=== PATIENT | female | born 1980 | race Caucasian/White ===

== ENCOUNTER 2016-10-07 09:01 | Inpatient (IN) | payer OTHER ==
[~2016-10-07] VITALS: Ht 160 cm; Wt 76.2 kg
[~2016-10-07 09:01] MED LIST: Rolling walker
[2016-10-07] MEDS ORDERED: PRENATAL TABLE1 EAC2 PO (10:28)
--- NOTE | 2016-10-07 10:59 | History & Physical ---
General Information and HPI MD Statement: I have seen and personally examined HUGO TIAN and documented this H&P. The patient is a 36 year old female at [40] weeks and [6] days gestation who presented with a chief complaint of [IOL]. Source of Information: patient Exam Limitations: no limitations History of Present Illness: 36yo, 40 6/7wks, here for IOL due to post dates. c/o tightening of abdomen, denies any pain, no vaginal bleeding or LOF. reports +FM. care started at 8 wks week, uncomplicated thus far, Rh negative, she received RhoGAm at 28 wks. GBS positive h/o SAB x 2. 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 Past Pregnancies Past Pregnancies: Date of Delivery: 01/31/2009 Gestational Age: 41wks Length of Labor: 20hrs Weight: [id number] Type of Delivery: vaginal Anesthesia: epidural Complications: none Medical History Blood Transfusion Hx: No Neurological: NONE EENT: allergies Cardiovascular: NONE Respiratory: asthma Gastrointestinal: NONE, acid reflex Hepatic: NONE Renal: NONE Musculoskeletal: NONE Psychiatric: depression Endocrine: NONE Blood Disorders: NONE Cancer(s): NONE 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 Home Who Do You Live With? spouse, child Primary Language: Hebrew Smoking Status: Former Smoker ETOH Use: denies use Illicit Drug Use: denies illicit drug use Living Will? unknown Review of Systems Review of Systems Constitutional: Reports: no symptoms. EENTM: Reports: no symptoms. Cardiovascular: Reports: no symptoms. Respiratory: Reports: no symptoms. GI: Reports: no symptoms. Genitourinary: Reports: see HPI. Musculoskeletal: Reports: no symptoms. Skin: Reports: no symptoms. Neurological/Psychological: Reports: no symptoms. Hematologic/Endocrine: Reports: no symptoms. Immunologic/Allergic: Reports: no symptoms. All Other Systems: Reviewed and Negative Post Menopausal: No Exam & Diagnostic Data Last 24 Hrs of Vital Signs/I&O Intake & Output 10/07 1600 10/07 0800 10/07 0000 Intake Total Output Total Balance Patient 76.204 kg Weight Obstetric Exam Wgt Gained During : 23lbs Pelvimetry: adequate Dilation (cm): 1 Effacement (%): 50 Station: -3 Membranes: intact Fluid: unknown Fundal Height (cm): 40 Multiple Gestation? No Contractions: q8-9 min #1 - FHR Baseline: 130 Category: 1 Estimated Weight: 7lb Presentation: vertex Patient for Induction? Yes Bell Score Bell Score Response Value Cervix Position: posterior 0 Cervix Consistency: medium 1 Cervix Effacement: 30-50% 1 Cervix Dilation: 1-2 cm 1 Cervix Station: -3 0 Total 3 Physical Exam: VSS general: NAD Abdomen: gravid, soft, nontender Ext: DCT (-) Labs Blood Type & Rh: O negative Antibody Screen: negative Hct/Hgb & Platelets #1: 12.7/38.4%, [id number] Hct/Hgb & Platelets #2: 10.4/32.6%,[id number] Rubella: immune VDRL #1: negative VDRL #2: negative HbsAg: negative HIV #1: negative HIV #2 negative 1 Hr P Group B Strep: positive Initial Ultrasound: IUP at 8 wks 3 days Anatomy Ultrasound: normal Genetic Testing: negative Last 24 Hrs of Labs/Mayur: Laboratory Tests 10/07/16 0933: CBC w Diff Pending, WBC Pending, RBC Pending, Hgb Pending, Hct Pending, MCV Pending, MCH Pending, RDW Pending, Plt Count Pending, MPV Pending, PUBS MCHC Pending Assessment/Plan Assessment/Plan: 36yo, , 40 6/7wks, IOL 1. admit pt, admission labs. 2. method of IOL d/w pt, she understand. in light of ctxs every 8-9 min apart, will defer cytotec for cervical ripening, aide kumaron of cervical ripening d/w pt, R/B /A d/w pt in detail, she understand and agreed. 3. antibiotics for GBS prophylaxis 4. will monitor closely As Ranked By This Provider Problem List: 1. 2. Post-dates Core Measures/Miscellaneous Venous Thromboembolism VTE Risk Factors: / VTE Contraindications: No Contraindications VTE Prophylaxis Ordered Inpt: Early Ambulation VTE Diagnosis: No Beta Kate Is Beta Kate a Home Med? No Antibiotics Is Patient on Antibiotics? No Attending MD Review Statement Attending Statement Attending MD Statement: examined this patient, discussed with family, discussed w/nursing
[2016-10-07 11:43] LABS: ABSOLUTE BASOPHIL COUNT 0.1 /CUMM (0.0-0.2); ABSOLUTE EOSINOPHIL COUNT 0 /CUMM (0.0-0.7); ABSOLUTE GRANULOCYTE CT 7.4 /CUMM (1.4-6.5); ABSOLUTE LYMPH COUNT 1.3 /CUMM (1.2-3.4); ABSOLUTE MONOCYTE COUNT 0.7 /CUMM (0.10-0.60); BASOPHIL % 0.6 % (0.0-2.0); EOSINOPHIL % 0 % (0-5); GRANULOCYTE % 78.1 % (42.2-75.2); HEMATOCRIT 31.7 % (37-47); MEAN CORPUSCULAR HGB 24.7 PG (27.0-31.0); MEAN CORPUSCULAR HGB CONC 32.5 G/DL (33.0-37.0); MEAN PLATELET VOLUME 10.4 FL (7.4-10.4); PLATELET COUNT 246 /CUMM (130-400); RBC DISTRIBUTION WIDTH 15.4 % (11.5-14.5); RED BLOOD CELL CT 4.17 /CUMM (4.20-5.40); WHITE BLOOD CELL COUNT 9.5 /CUMM (4.8-10.8)
--- NOTE | 2016-10-07 11:50 | PN- OBGYN ---
Surgical Brief Attending Note Brief Attending Note: Pt c/o ctxs more stronger than before, she felt painful ctxs now. on TOCO: ctxs q 5-8 min, FHT cat. I. noble ballon placement attempted, but unsucessful , will start pitocin for IOL, plan of care d/w pt, she understand and agreed.
--- NOTE | 2016-10-07 19:45 | PN- OBGYN ---
Surgical Brief Attending Note Brief Attending Note: Late entry for 7 PM pt c/o ctxs pain , some pressure with ctxs on TOCO: ctxs 3-5 in 10 min, FHR cat I. cervix 2cm/70-80%/-3 will give stadol for pain management. monitor closely
--- NOTE | 2016-10-08 03:32 | Labor & Delivery Summary ---
Delivery Summary Vaginal Delivery: Vaginal: vertex Episiotomy/Lacerations: Episiotomy/Lacerations: 2ND DEGREE Type: 2ND DEGREE Repair: 3-0 vicryl Anesthesia: epidural, local Placenta: Placenta: spontanteous, normal, 3 vessel, nuchal cord (x_) (x1) Anesthesia: epidural Cord PH Value: 7.33 Baby's Weight: 7lb4oz Apgars - 1 Min: 7 Apgars - 5 Min: 9
[2016-10-09 04:50] LABS: ABSOLUTE BASOPHIL COUNT 0 /CUMM (0.0-0.2); ABSOLUTE EOSINOPHIL COUNT 0 /CUMM (0.0-0.7); ABSOLUTE GRANULOCYTE CT 11.8 /CUMM (1.4-6.5); ABSOLUTE LYMPH COUNT 1.4 /CUMM (1.2-3.4); ABSOLUTE MONOCYTE COUNT 0.9 /CUMM (0.10-0.60); BASOPHIL % 0.1 % (0.0-2.0); EOSINOPHIL % 0.2 % (0-5); GRANULOCYTE % 83.7 % (42.2-75.2); HEMATOCRIT 26.8 % (37-47); MEAN CORPUSCULAR HGB 24.8 PG (27.0-31.0); MEAN CORPUSCULAR HGB CONC 32.4 G/DL (33.0-37.0); MEAN CORPUSCULAR VOLUME 76.3 FL (81.0-99.0); MEAN PLATELET VOLUME 9.4 FL (7.4-10.4); PLATELET COUNT 210 /CUMM (130-400); RBC DISTRIBUTION WIDTH 15.6 % (11.5-14.5); RED BLOOD CELL CT 3.51 /CUMM (4.20-5.40); WHITE BLOOD CELL COUNT 14.1 /CUMM (4.8-10.8)
[2016-10-09] MEDS ORDERED: IBUPROFEN800 M1 PO (11:15)
[2016-10-09] MEDS ORDERED: ATIVAN0.5 M1 PO (11:15)
[2016-10-09] MEDS ORDERED: FLUOXETINE HCL20 M2 PO (11:16)
[2016-10-09] MEDS ORDERED: DOCUSATE SODIU100 M3 PO (11:18)
[2016-10-09] MEDS ORDERED: FERROUS SULFAT324 MG PO (11:18)
--- NOTE | 2016-10-09 11:40 | Cons- Psychiatry ---
Psychiatric Consult Date of Consult: 10/09/16 Reason for Consult: worsening anxiety since giving , previously on fluoxetine History of Present Illness: Pt with pph of Major Depressive Disorder and Panic disorder with agoraphbia who presented for IOL at 40wk, 6d. Pt gave around 3am this morning. Since then and just prior to labor, she started feeling increasing anxious with a "feeling of something in my throat" getting higher and higher, intermittent tachycardia, and increase in ruminative thoughts around having to care for , 7yo son, who is currently ill, and her . Pt notes that just after the of son in 2008, felt increasingly anxious, isolative, depressed. At that time was in [facility]. Trialed on mirtazapine which caused increased sedation and sertraline which lead to increased anxiety and weight gain. She was admitted to [facility] for inpatient treatment given worsening depression and anxiety. She was initated and titrated up to fluoxetine 60mg daily which she continued until December of 2015 when she found out that she was with child she gave to this morning. 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 By spring, she was seening outpatient psychotherapist, Liliana Andrews, 1-2x/month and was seening sandra REAVES at outpatient for MM. Her mood had been stablely euthymic without SI or HI. In addition, anxiety had been markedly decreased and pt able to function well, working and caring for child and family. Pt notes since dc of fluoxetine, no significant change in mood until one day ago during labor and immediately after delivery. When she realized that profound marked anxiety sx were worsening, she talked with providers and told them she wish to be reinstated on the fluoxetine. Psych was then consulted. Of note, when started on fluoxetine, patient was not and did not restart. Currently she is denying SI or HI, psychotic, manic or TRS. Collateral from her mother, Luann: Pt was "fine" up until the delievery. She then noted she was increasingly anxious. Mother is fully supportive around her restarting fluoxetine as thought it was very helpful. Mother notes strong FHx of anxiety disorders Other stressors noted to be limited fiancial means, illness of her son, and of LASHAWN in early 2015 Allergies: Coded Allergies: apple (Mild, HIVES 10/07/16) NO KNOWN ALLERGIES (10/07/16) NONE KNOWN PER ANTIBIOTIC ORDER SHEET OF 10/09/14 ([facility]) Current Medications: Current Medications Sig/Mike Start time Last Medication Dose Route Stop Time Status Admin Acetaminophen 650 MG Q4P PRN 10/08 0330 AC PO Diphenoxylate HCl/ 2.5 MG Q6 10/09 0721 AC 10/09 Atropine PO 0753 Docusate Sodium 100 MG BID PRN 10/08 0330 AC 10/08 PO 1818 Fluoxetine HCl 20 MG DAILY 10/09 1111 AC PO Hydroxyzine HCl 100 MG ONCE ONE 10/09 0445 DC 10/09 PO 10/09 0446 0440 Ibuprofen 800 MG Q6P PRN 10/08 0330 AC 10/09 PO 0333 Lactated Ringer's 1,000 ML ONCE ONE 10/09 0630 AC 10/09 IV 10/09 1409 0731 Lorazepam 0.5 MG Q4 PRN 10/09 0730 AC 10/09 PO 10/16 0729 0753 Ondansetron HCl 4 MG ONCE ONE 10/09 07 DC 10/09 IV 10/09 0701 0650 Oxycodone/ 1 TAB Q3P PRN 10/08 0330 AC Acetaminophen PO Tetanus/Reduced 0.5 ML ONCE ONE 10/08 1145 DC 10/08 Diphtheria/Acell IM 10/08 1146 1135 Pertussis Past History Past Medical History Neurological: NONE EENT: allergies Cardiovascular: NONE Respiratory: asthma Gastrointestinal: NONE, acid reflex Hepatic: NONE Renal: NONE Musculoskeletal: NONE Psychiatric: depression Endocrine: NONE Blood Disorders: NONE Cancer(s): NONE 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: miscarriage (2014) Past Surgical History Surgical History: non-contributory Psychosocial History Strengths/Capabilities: good response to meds in the past strong family support engaged with treatment in the past psychologically minded Physical Limitations (Interventions): n/a Psychiatric Treatment History Psych Treatment Psychiatric Treatment Yes Outpatient Treatment Yes ( [id number]) Reason for Treatment worsening anxieyt and depression PP Dates of Treatment [id number] Response to Treatment very good, marked dec in sx Diagnosis: Panic disorder with agoraphobia Generalized anxiety disorder Major Depressive disorder Risk Factors: high anxiety/distress Substance Use/Abuse History Drug Use/Abuse Substances Used/Abused No (Pt denied) Substance Abuse Treatment Substance Abuse Treatment Past Substance Abuse [place] No Comments: Pt denied Assessment/Plan Mental Status Orientation: Current situation, Person, Place, Situation Affect: Anxious, Depressed Speech: Normal Neuro-vegetative: Helpless, Sleep Disturbance Mental Status Exam: Appears as stated age. Cooperative behavior, good, appropriate eye contact. Nl speech rate and prosody. No psychomotor retardation or agitation. Mood "very anxious Affect sad, anxious, constricted, appropriate, non-liable. Linear and goal directed thought process. Denies SI or HI. Does not appear to be responding to internal stimuli. Denies AVHs, paranoia, or delusions. I/J: limited Lab Results: Laboratory Tests 10/09 10/09 0435 0435 Hematology CBC w Diff NO MAN DIFF REQ WBC (4.8 - 10.8 /CUMM) 14.1 H RBC (4.20 - 5.40 /CUMM) 3.51 L Hgb (12.0 - 16.0 G/DL) 8.7 L Hct (37 - 47 %) 26.8 L MCV (81.0 - 99.0 FL) 76.3 L MCH (27.0 - 31.0 PG) 24.8 L RDW (11.5 - 14.5 %) 15.6 H Plt Count (130 - 400 /CUMM) 210 MPV (7.4 - 10.4 FL) 9.4 Gran % (42.2 - 75.2 %) 83.7 H Lymphocytes % (20.5 - 51.1 %) 9.8 L Monocytes % (1.7 - 9.3 %) 6.2 Eosinophils % (0 - 5 %) 0.2 Basophils % (0.0 - 2.0 %) 0.1 Absolute Granulocytes (1.4 - 6.5 /CUMM) 11.8 H Absolute Lymphocytes (1.2 - 3.4 /CUMM) 1.4 Absolute Monocytes (0.10 - 0.60 /CUMM) 0.9 H Absolute Eosinophils (0.0 - 0.7 /CUMM) 0 Absolute Basophils (0.0 - 0.2 /CUMM) 0 PUBS MCHC (33.0 - 37.0 G/DL) 32.4 L Kleihauer Cells (NONE SEEN) NONE SEEN Diffential Diagnosis: PP Depression vs MDD RICH Panic disorder Impression: Pt with hx of MDD (likely PP), Panic disorder , and likely RICH given report of near constant worries in all aspects of her life presenting with worsening anxiety and rumination s/p this morning in the setting of discontinuation of mental health care in December 2015. Given lack of SI or HI or grave disability, no indication of acute psychiatric stablization at this time. As patient responded well to fluoxetine in the past, would restart and get her connectd with care for MM and psychotherapy. Of note, patient does not intent to breastfeed. Provisional Treatment Plan: - Start fluoxetine 20mg daily, will be titrated upwards by outpatient provider; discussed r/b/se with patient including but not limited to GI distress. - As a bridge, ativan 0.5mg Qday PRN severe panic sx - Pt given card for outpatient services to call on Tuesday. Unfortunately, clinic closed and cannot be scheduled on the weekend. - Pt understands that can return to the hospital or call 911 if thoughts of harm to self or others or worsening anxiety or depressive sx once discharged. Thank you for the consult.
--- NOTE | 2016-10-09 12:31 | PN- Post Delivery/GYN ---
Subjective Subjective: Patient states she feels much more comfortable and calm since visiting with the psychiatrist earlier. Patient is happy pediatric back on Prilosec 20 daily and utilizing Ativan as needed for anxiety. Patient recently had a full consultation with Dr. Lofton from psychiatry. Dr. Lofton felt that the patient had general anxiety disorder with panic features that has been exacerbated in the state. Dr. Lofton has given the patient a card to set up her post follow-up with outpatient psychiatry clinic were patient previously has seen a therapist there.. Patient's mother and are fully supportive of her returning to her medications and stopping breast- feeding. On patient states that she will be much more comfortable at home in her own bed not worried about her 7-year-old son who is had a mild respiratory illness and the fact that her would be at their home tonight and not with her at the hospital. Patient's mother states that she will be helping out around the house for Angie so that she'll have very few stressors over the next few days. Patient denies suicidal ideation, she has no risk for harming herself or others. Patient seems to have good insight into her situation and seems to be able to ask for help appropriately Review of Systems: Currently negative for cardiac pulmonary GI complaints Review of Systems Neurological/Psychological: Reports: anxiety, depressed, emotional problems. Denies: ataxia, cognitive dysfunction, confusion, dementia, headache, tonic-clonic seizures. Objective Last 24 Hrs of Vital Signs/I&O Vital Signs Date Time Temp Pulse Resp B/P Pulse O2 O2 Flow FiO2 Ox Delivery Rate 10/09 0209 98.7 84 16 116/72 98 RA Physical Exam General Appearance Alert, Oriented X3, Cooperative, No Acute Distress, appears calm and not agitated patient very articulate and seems to have insight regarding her current emotional situation Skin No Rashes, No Breakdown Cardiovascular Regular Rate Lungs Normal Air Movement Abdomen Normal Bowel Sounds, Soft, No Tenderness, No Hepatospenomegaly, uterine fundus is firm midline nontender 2-3 fingerbreadths below the umbilicus. Neurological Normal Gait, Normal Speech Extremities No Tenderness/Swelling Reproductive (FEMALE) Normal female genitalia, average lochia Current Medications: Current Medications Sig/Mike Start time Last Medication Dose Route Stop Time Status Admin Acetaminophen 650 MG Q4P PRN 10/08 0330 AC PO Diphenoxylate HCl/ 2.5 MG Q6 10/09 0721 AC 10/09 Atropine PO 0753 Docusate Sodium 100 MG BID PRN 10/08 0330 AC 10/08 PO 1818 Fluoxetine HCl 20 MG DAILY 10/09 1111 AC 10/09 PO 1152 Hydroxyzine HCl 100 MG ONCE ONE 10/09 0445 DC 10/09 PO 10/09 0446 0440 Ibuprofen 800 MG .STK-MED ONE 10/09 0330 DC PO 10/09 0331 Ibuprofen 800 MG Q6P PRN 10/08 0330 AC 10/09 PO 0333 Lactated Ringer's 1,000 ML ONCE ONE 10/09 729 AC 10/09 IV 10/09 1409 0731 Lorazepam 0.5 MG Q4 PRN 10/09 729 AC 10/09 PO 10/16 0729 0753 Ondansetron HCl 4 MG ONCE ONE 10/09 699 DC 10/09 IV 10/09 0701 0650 Oxycodone/ 1 TAB Q3P PRN 10/08 0330 AC Acetaminophen PO Last 24 Hrs of Labs/Mayur: Laboratory Tests 10/09/16 0435: Kleihauer Cells NONE SEEN 10/09/16 0435: CBC w Diff NO MAN DIFF REQ, RBC 3.51 L, MCV 76.3 L, MCH 24.8 L, RDW 15.6 H, MPV 9.4, Gran % 83.7 H, Lymphocytes % 9.8 L, Monocytes % 6.2, Eosinophils % 0.2, Basophils % 0.1, Absolute Granulocytes 11.8 H, Absolute Lymphocytes 1.4, Absolute Monocytes 0.9 H, Absolute Eosinophils 0, Absolute Basophils 0, PUBS MCHC 32.4 L Assessment/Plan Assessment/Plan day #1. Current issues #1 general anxiety disorder with panic attacks who is status post inpatient consultation with psychiatrist Dr. Lofton. Everyone is in agreement with management plan of fluoxetine 20 daily to start with and Ativan 0.5 several times a day is needed to manage anxiety. Patient has a phone number for outpatient psychiatry clinic @ [facility]. (She previously was a patient there who had a relationship with the therapist that unfortunately she ended during the early part of this , "hoping that she was in a better place"). She had a good relationship previously with the therapist is looking forward to getting back to seeing her in consultation following discharge from the hospital. Patient states that she will be much more, she is able to sleep in her own bed tonight with her by her side and both sons at home. Patient has good support from both her and her mother and should be able to do well at home to starting back on fluoxetine and utilizing Ativan as needed. Patient has not at any risk of harming herself or others. She seems to have good insight into her moods and the need for medication. In light of her diagnosis of Agoraphobia plus panic attacks she'll probably be much better off tonight in a supportive setting at home. #2 anemia. We discussed the need for iron supplements and then the utilization of a stool softener if she becomes constipated due to the iron ingestion. Patient's aware that she does need the iron and to alleviate her anemia which can cause fatigue and can be detrimental to her mood. So she is aware that evening she becomes constipated with the iron she needs to manage the constipation and still take the iron. Patient should only likely need the iron for 6 weeks #3 routine care patient is switching over to formula we discussed management of breast engorgement. After discussion with the patient and her family and nursing staff the decision is made that the patient to be discharged this evening later on day # 1. Patient will be seen in the outpatient psychiatry clinic later this week and will follow-up with our office 2 weeks and 6 weeks following delivery Problem List: 1. mood disturbance 2. Post-dates 3. Generalized anxiety disorder 4. Panic attack 5. Agoraphobia with panic attacks 6. Term of male Attending MD Review Statement Attending Statement Attending MD Statement: examined this patient, discussed with family, reviewed EMR data (avail), discussed with nursing Attending Assessment/Plan: Jo Parikh
== END 2016-10-09 15:25 | DRG 775 ==
LOC: GNO 09:01
PROVIDERS: ADMIT Obstetrics & Gynecology
PROC: 0KQM0ZZ Repair Perineum Muscle, Open Approach (ICD-10-PCS; principal; 2016-10-08)
PROC: 10E0XZZ Delivery of Products of Conception, External Approach (ICD-10-PCS; 2016-10-08)
DX: O70.1 Second degree perineal laceration during delivery (principal); Z37.0 Single live birth; Z3A.41 41 weeks gestation of pregnancy
CPT/HCPCS: GNOP; GNOS; 81001; J0595; J2270; J2405; J2790; J7120